=== PATIENT | male | born 1955 | race African-American/Black ===

== ENCOUNTER 2022-10-08 11:38 | Emergency (ER) | payer MEDICARE, MEDICAID, SELFPAY ==
--- NOTE | ~2022-10-08 | US_ITS ---
EXAMINATION: US venous doppler LE RT DATE: 10/08/2022 14:24 INDICATION: Right lower limb pain TECHNIQUE: Grayscale ultrasound images without and with compression and Doppler ultrasound images of the right lower extremity veins were obtained. COMPARISON: None. FINDINGS: The visualized portions of right common femoral vein, profunda (deep) femoral vein, femoral vein, pop liteal vein, peroneal trunk, posterior tibial veins, peroneal veins, gastrocnemius vein and greater s aphenous vein outflow are patent. IMPRESSION: 1. No deep venous thrombosis in the right lower limb. Reviewed, dictated and finalized at location A.
[2022-10-08 11:58] VITALS: BP 97/64; PULSE 73; RESP 61; TEMP 36.4; O2SAT 99
--- NOTE | 2022-10-08 13:55 | ED.GENADULT ---
HPI - General Adult General Chief complaint: Extremity Injury, Lower Stated complaint: right sided hip pain Time Seen by Provider: 10/08/22 13:32 History of Present Illness HPI narrative: 67-year-old male history of gout presented the emergency department for evaluation of worsening right hip pain that he describes as being at his buttock and radiating down his leg to his foot. Patient states this does feel like prior sciatica. Patient has been taking [id number] pain meds with no significant improvement. Patient denies any falls or injuries. Patient denies any associated numbness or weakness. Patient states this does not feel similar to his prior gout. Related Data Allergies Allergy/AdvReac Type Severity Reaction Status Date / Time No Known Allergies Allergy Unknown Verified 10/08/22 11:57 Review of Systems Review of Systems: All systems reviewed & are unremarkable except as noted in HPI and below Exam Narrative: APPEARANCE: Well appearing, no pain, no distress, well-nourished. HEAD: normocephalic, atraumatic. EYES: PERRLA/EOMI, conjunctivae clear. NOSE: Normal no drainage RESPIRATORY: Airway patent, respirations nonlabored. Clear to auscultation bilaterally, no rales, rhonchi, wheezing. CARDIOVASCULAR: Regular rate and rhythm without murmurs rubs or gallops. ABDOMINAL: Soft, nontender, nondistended, normal bowel sounds MUSCULOSKELETAL: Moves all extremities. Neurovascular intact. Reproducible tenderness over right buttock consistent with sciatica. NEURO: Alert. Cranial nerves II through XII intact. Grossly intact SKIN: Warm, dry. Normal Color Course Course Emergency Course: 67-year-old male with right hip consistent with sciatica. Low concern for gout or arthritis as underlying cause of his symptoms. Ultrasound was ordered to rule out DVT and ultrasound was negative for acute DVT. Patient will be started on Flexeril for muscle spasm and started on a Medrol Dosepak for suspected sciatica. Patient was updated on the results of the ultrasound and plan for treatment. All questions and concerns were addressed and patient was comfortable with the plan for close follow-up with his primary care physician. Vital Signs Vital signs: Vital Signs Temperature 97.6 F 10/08/22 11:58 Pulse Rate 73 10/08/22 11:58 Respiratory Rate 61 H 10/08/22 11:58 Blood Pressure 97/64 L 10/08/22 11:58 Pulse Oximetry 99 10/08/22 11:58 Oxygen Delivery Room Air 10/08/22 11:58 Temperature 97.7 F 10/08/22 15:37 Pulse Rate 68 10/08/22 15:37 Respiratory Rate 16 10/08/22 15:37 Blood Pressure 112/80 10/08/22 15:37 Pulse Oximetry 100 10/08/22 15:37 Oxygen Delivery Room Air 10/08/22 11:58 Medical Decision Making Vital Signs Vital Signs: Vital Signs Temperature 97.6 F 10/08/22 11:58 Pulse Rate 73 10/08/22 11:58 Respiratory Rate 61 H 10/08/22 11:58 Blood Pressure 97/64 L 10/08/22 11:58 Pulse Oximetry 99 10/08/22 11:58 Oxygen Delivery Room Air 10/08/22 11:58 Temperature 97.7 F 10/08/22 15:37 Pulse Rate 68 10/08/22 15:37 Respiratory Rate 16 10/08/22 15:37 Blood Pressure 112/80 10/08/22 15:37 Pulse Oximetry 100 10/08/22 15:37 Oxygen Delivery Room Air 10/08/22 11:58 Imaging Data Radiologist's impression: Impressions Venous Doppler Study 10/08/22 14:36 IMPRESSION: 1. No deep venous thrombosis in the right lower limb. Discharge Plan Discharge Clinical Impression: Sciatica Qualifiers: Laterality: right Qualified Code(s): M54.31 - Sciatica, right side Patient Disposition: Home, Self-Care Condition: Stable Instructions: Antibiotic Form, Sciatica (ED) Additional Instructions: Tylenol for pain control. Flexeril as needed for muscle spasm. Medrol Dosepak as directed until completed. Have close follow-up with your primary care physician. If you have any worsening symptoms please call or return to the emergency department
[2022-10-08 15:37] VITALS: BP 112/80; PULSE 68; RESP 16; TEMP 36.5; O2SAT 100
== END 2022-10-08 15:37 | disposition home or self-care (01) ==
PROVIDERS: Emergency Provider Emergency Medicine
DX: M54.31 Sciatica, right side (principal)
CPT/HCPCS: 93971; 99284